=== PATIENT | female | born 1970 | race Caucasian/White ===

== ENCOUNTER 2022-10-31 09:43 | Day surgery (SDC) | payer OTHER, SELFPAY ==
[2022-08-10 08:45] VITALS: BMI 20.5
--- NOTE | 2022-09-13 09:23 | PC.NURSE ---
PT LEFT MESSAGE ON FACILITY VOICEMAIL AFTER HOURS. MESSAGE STATED SHE WAS THINKING OF CANCELLING PROCEDURE UNLESS SHE COULD HAVE IT ON A MONDAY. CALLED PT, NO ANSWER. MESSAGE LEFT; IF SHE INTENDS TO CANCEL, SHE NEEDS TO CALL DR GAYTAN'S OFFICE. ALSO WE ARE CLOSED ON WEEKENDS.
[2022-10-21 10:57] VITALS: BMI 20.5
--- NOTE | 2022-10-28 16:22 | PM.HPGS ---
History of Present Illness History of Present Illness Consent: Risks, benefits, and alternatives have been discussed and questions answered. Patient agrees to proceed with procedure. Chief complaint: Neoplasm screening Narrative: Ana Laura Falcon is a 52 year old female Referred for colon cancer screening Review of Systems Review of Systems: All systems reviewed & are unremarkable except as noted in HPI and below PMFSH Past Medical History Medical History Abnormal Pap smear of cervix 11/25/09 ASCUS hpv negative/ 04/21/2008 ascus -hpv Heartburn Hyperlipidemia Migraines Miscarriage 12/11/02 03/13/03 07/22/10 Neck fracture (~1990) Psoriasis Surgical History Surgical History History of breast augmentation (~2005) History of colposcopy with cervical biopsy (12/05/07) History of dilation and curettage 12/11/02 suction d&c--missed AB 8 weeks 03/13/03 suction d&c--incomplete ab 07/22/10 suction d&c--miscarriage History of endometrial ablation (12/05/18) History of gynecologic surgery (08/15/18) hscope d&C/lscope (R) ovarian cystectomy--menometrorrhagia, dysmenorrhea, ovarian cyst Family History Family History Father Heart disease Malignant neoplasm of prostate Colon polyp Mother Hypertension Colon polyp Grandparent Cerebrovascular accident maternal grandfather Malignant tumor of ovary maternal grandmother Social History Social History Smoking status: Never smoker Substance use: never Substance use type: does not use Living arrangements: with family Spiritual care concerns: No Meds Home Medications and Allergies Home Medications Medication Instructions Recorded Confirmed Type atorvastatin 10 mg tablet 10 mg PO DAILY 10/21/22 10/21/22 History multivit with minerals-iron 18 1 tablet PO DAILY 10/21/22 10/21/22 History mg-folic ac 400 mcg-vit K 25 mcg tablet (Adults Multivitamin) Allergies Allergy/AdvReac Type Severity Reaction Status Date / Time No Known Allergies Allergy Verified 10/21/22 10:56 Exam Const: General: alert Orientation/consciousness: patient oriented x3 Resp: Auscultation: clear to auscultation bilaterally Cardio: Rhythm: regular rhythm GI: GI Palp: Yes Soft to palpation and No Tenderness to palpation present (GI) Neuro: General: patient oriented x3 Assessment and Plan Assessment and plan (1) Colon cancer screening: Code(s): Z12.11 - Encounter for screening for malignant neoplasm of colon Status: Acute Assessment and Plan: Colonoscopy with possible biopsy or polypectomy or cautery or injection of substances.
--- NOTE | 2022-10-31 07:55 | WPDANESEPPF ---
Anes - Initial Pre Proc Eval Procedure: Operation Date: 10/31/22 11:30 Proposed Procedures p Screening Colonoscopy - Ernst Albright MD Date/Time: 10/31/22 07:55 Surgeon: Ernst Albright MD Pre Op Diagnosis: Neoplasm screening Patient Data Age: 52 Gender: F Height: 1.78 m Weight: 65 kg Allergies Allergy/AdvReac Type Severity Reaction Status Date / Time No Known Allergies Allergy Verified 10/21/22 10:56 Home Medications Medication Instructions Recorded Confirmed Type atorvastatin 10 mg tablet 10 mg PO DAILY 10/21/22 10/21/22 History multivit with minerals-iron 18 1 tablet PO DAILY 10/21/22 10/21/22 History mg-folic ac 400 mcg-vit K 25 mcg tablet (Adults Multivitamin) Patient hx anesthesia problems: none Family hx anesthesia problems: none Results Review: All pre-operative results and documents have been reviewed as part of the pre-operative evaluation. FOR[facility] Past Medical History Medical History (Updated 10/28/22 @ 16:22 by Ernst Albright MD) Abnormal Pap smear of cervix 11/25/09 ASCUS hpv negative/ 04/21/2008 ascus -hpv Heartburn Hyperlipidemia Migraines Miscarriage 12/11/02 03/13/03 07/22/10 Neck fracture (~1990) Psoriasis Surgical History Surgical History (Updated 09/28/22 @ 08:41 by Sarah Bacon) History of breast augmentation (~2005) History of colposcopy with cervical biopsy (12/05/07) History of dilation and curettage 12/11/02 suction d&c--missed AB 8 weeks 03/13/03 suction d&c--incomplete ab 07/22/10 suction d&c--miscarriage History of endometrial ablation (12/05/18) History of gynecologic surgery (08/15/18) hscope d&C/lscope (R) ovarian cystectomy--menometrorrhagia, dysmenorrhea, ovarian cyst Family History Family History (Updated 09/28/22 @ 08:43 by Sarah Bacon) Father Heart disease Malignant neoplasm of prostate Colon polyp Mother Hypertension Colon polyp Grandparent Cerebrovascular accident maternal grandfather Malignant tumor of ovary maternal grandmother Social History Social History Smoking status: Never smoker Substance use: never Substance use type: does not use Living arrangements: with family Spiritual care concerns: No Anes - Eval Final PreProcedure Day of Procedure 10/31/22 07:55 Patient weight: normal Heart: regular rate and rhythm Lungs: clear to auscultation and normal air movement Airway: Mallampati scale class II Neurological: alert and oriented Last oral intake: >/= 8 hours ASA classification: II Emergent: no Anesthetic plan: proceed Anesthesia type and monitoring: general GIVS and standard monitoring Results Review: All pre-operative results and documents have been reviewed as part of the pre-operative evaluation. Informed Consent: The patient's anesthetic plan and its attendant risks and benefits were discussed with the patient/family/POA. Questions were solicited and answers provided to the satisfaction of the patient/family/POA.
[2022-10-31 10:20] VITALS: BP 109/95; PULSE 95; RESP 20; TEMP 36.9; O2SAT 100
[2022-10-31] MEDS: LACTATED RINGERS 1,000 ML 150 ML IV CONT (10:41)
[2022-10-31 11:37] VITALS: BP 104/78; PULSE 98; RESP 16; O2SAT 99
[2022-10-31 11:47] VITALS: BP 112/81; PULSE 88; RESP 20; O2SAT 100
[2022-10-31 11:57] VITALS: BP 126/90; PULSE 86; RESP 20; O2SAT 100
--- NOTE | 2022-10-31 13:34 | WPDANESPN ---
Anes - Prog Note Post-Op Date/Time: 10/31/22 13:34 Cardiovascular status: normal Respiratory status: normal Airway patency: baseline Mental status: baseline Post-Op hydration status: normal Vital Signs: Last Vital Signs Temp 36.9 C 10/31/22 10:20 Pulse 86 10/31/22 11:57 Resp 20 10/31/22 11:57 BP 126/90 10/31/22 11:57 Pulse Ox 100 10/31/22 11:57 O2 Del Method Room Air 10/31/22 11:57 Pain Score (VAS): 0 I/O: Intake & Output 10/30/22 10/31/22 10/31/22 23:59 07:59 15:59 Intake Total 550 Balance 550 Post-procedural complaints: none Patient Feedback: Patient satisfied with anesthetic care. Other Findings: Patient vital signs back to baseline. Patient denies nausea and vomiting. Patient's pain under control. Patient OK for discharge.
== END 2022-10-31 12:12 | disposition home or self-care (01) ==
PROVIDERS: PCP Family Medicine; Visit Provider Internal Medicine Gastroenterology
PROC: 0DJD8ZZ Inspection of Lower Intestinal Tract, Via Natural or Artificial Opening Endoscopic (ICD-10-PCS; CPT 45378; principal; 2022-10-31 11:30)
DX: Z12.11 Encounter for screening for malignant neoplasm of colon (principal)
CPT/HCPCS: 45378

== ENCOUNTER 2025-01-07 11:59 | Outpatient (CLI) | payer OTHER, SELFPAY ==
--- NOTE | ~2025-01-07 | MM_ITS ---
EXAMINATION: MM screening ariana BI w court HISTORY: Screening TECHNIQUE: Craniocaudal and mediolateral oblique 3-D tomosynthesis images were obtained and synthetic 2-D images were generated. CAD analysis was submitted and interpreted. COMPARISON: No prior mammogram is available for comparison at this institution. BREAST PARENCHYMAL COMPOSITION: Not dense: There are scattered areas of fibroglandular density. FINDINGS: There is no evidence of suspicious mass, calcification, or architectural distortion to sugg est malignancy in either breast. There has been no suspicious interval change. IMPRESSION: 1. No mammographic evidence of malignancy. 2. Recommend routine screening mammography in one year. BI-RADS Category 1: Negative Reviewed, dictated and finalized at location A.
--- OUTSIDE RECORDS SUMMARY | 2025-01-07 12:24 | XMS_ITS | Data Portability ---
Author Organization [facility] [employer], Main Office Address [address] [place] [address] Care Team Providers Care Drug Safety Coordinator Name Role Phone BRENDAPAULATARA Primary Care Provider [phone] TARA DELGADILLO Referring Provider Assessment No assessment recorded. Plan of Treatment Reminders Order Date Submit Date Provider Last Modified By Organization Details Last Modified Time Details Appointments None recorded. Lab None recorded. Referral None recorded. Procedures None recorded. Surgeries None recorded. Imaging None recorded. Medication Orders atorvastati n 10 mg tablet 2022 023 [facility] [address], [address], [place], [address], 09:11:04 Patient TargetsNo targets recorded. Patient Instructions Encounter Date Encounter Id Patient Instructions Last Modified By Organization Details Last Modified Time 08/14/2023 [id number] reviewed labs from November [id number] Not available 08/26/2023 17:02:28 Reason for Referral None Reported. Results Created Date Observation Date Name Description Value Unit Range Abnormal Flag Note LastModifiedBy Organization Detail LastModifiedTime 06/14/2006/14/2022 urina lysis , dipst ick Leukocytes (reference range: negative cristina/ l) Trace Not Available [facility] [address] , [address], [place], [address], 06/14/2022 17:09:44 06/14/20 22 06/14/2022 urina lysis , dipst ick Nitrite (reference rage: negative mg/dl) negati ve Not Available [facility] [address] , [address], [place], [address], 06/14/2022 17:09:44 06/14/20 22 06/14/2022 urina lysis , dipst ick Urobilinogen (reference range: 0.2-1 mg/dl) 0.2 Not Available [address] , [address], [place], [address], 06/14/2022 17:09:44 06/14/20 22 06/14/2022 urina lysis , dipst ick Protein (reference range: negative mg/dl) Negati ve Not Available [address] , [address], [place], [address], 06/14/2022 17:09:44 06/14/20 22 06/14/2022 urina lysis , dipst ick pH (reference range: 5-7) 7.0 Not Available [address] , [address], [place], [address], 06/14/2022 17:09:44 06/14/20 22 06/14/2022 urina lysis , dipst ick Blood (reference range: negative Bebeto/ l) Negati ve Not Available [address] , [address], [place], [address], 06/14/2022 17:09:44 06/14/20 22 06/14/2022 urina lysis , dipst ick Specific Nordman (reference range: 1.005-1.030) 1.010 Not Available [address] , [address], [place], [address], 06/14/2022 17:09:44 06/14/20 22 06/14/2022 urina lysis , dipst ick Ketone (reference range: negative mg/dl) Negati ve Not Available [address] , [address], [place], [address], 06/14/2022 17:09:44 06/14/20 22 06/14/2022 urina lysis , dipst ick Bilirubin (reference range: negative mg/dl) Negati ve Not Available [address] , [address], [place], [address], 06/14/2022 17:09:44 06/14/2006/14/2022 urina lysis , dipst ick Glucose (reference range: negative mg/dl) Negati ve Not Available [address] , [address], [place], [address], 06/14/2022 17:09:44 06/14/20 22 06/14/2022 urina lysis , dipst ick Appearance Clear Not Available [address] , [address], [place], [address], 06/14/2022 17:09:44 06/14/20 22 06/14/2022 urina lysis , dipst ick Color Pale Yellow Not Available [address] , [address], [place], [address], 06/14/2022 17:09:44 12/03/19 23 12/02/2022 LIPID PANEL cholesterol 195 mg/dL 140-19 9 [facility] DEVORAH NSUS RECOM MENDA TION FOR SAHIL STERO L: ADULT CHILD LOW RISK: <200 <170 BORDE RLINE : <200- 239 ----- HIGH RISK: >240 >200 Not Available [facility] (Lab) [address] [place], [address], 12/02/2022 13:58:46 12/03/19 23 12/02/2022 LIPID PANEL triglyceride s 54 mg/dL 0-150 NIH DEVORAH NSUS REPOR T RECOM MENDA TION FOR TRIGL YCERI TIA: ADULT CHILD LOW RISK: <150 ----- BODER LINE: 150-1 99 ----- HIGH RISK: >200 ----- Not Available [facility] (Lab) [address] [place], [address], 12/02/2022 13:58:46 12/03/19 23 12/02/2022 LIPID PANEL HDL cholesterol 102 mg/dL 40- Not Available [facility] (Lab) [address] [place], [address], 12/02/2022 13:58:46 12/03/19 23 12/02/2022 LIPID PANEL LDL cholesterol, calculated 82 mg/dL 0-130 NIH DEVORAH NSUS REPOR T RECOM MENDA TIONS FOR LDL: ADULT CHILD LOW RISK <130 <110 (OPTI MAL LDL) <100 ----- BORDE RLINE : 130-1 59 ----- HIGH RISK: >160 >130 A TRIGL YCERI DE RESUL T >400 INVAL IDATE S THE CALCU LATIO N FOR LDL FRACT IONAT ION - THE LDL RESUL T WILL NOT BE REPOR REGAN. Not Available [facility] (Lab) [address] [place], [address], 12/02/2022 13:58:46 12/03/19 23 12/02/2022 COMPR EHENS KAY METAB OLIC PANEL sodium 137 mmol/ L 137-14 5 Not Available [facility] (Lab) [address] [place], [address], 12/02/2022 13:58:57 12/03/19 23 12/02/2022 COMPR EHENS KAY METAB OLIC PANEL potassium 4.3 mmol/ L 3.5-5. 1 Not Available [facility] (Lab) [address] [place], [address], 12/02/2022 13:58:57 12/03/19 23 12/02/2022 COMPR EHENS KAY METAB OLIC PANEL chloride 104 mmol/ L 98-107 Not Available [facility] (Lab) [address] [place], [address], 12/02/2022 13:58:57 12/03/19 23 12/02/2022 COMPR EHENS KAY METAB OLIC PANEL carbon dioxide 25 mmol/ L 22-30 Not Available [facility] (Lab) [address] [place], [address], 12/02/2022 13:58:57 12/03/19 23 12/02/2022 COMPR EHENS KAY METAB OLIC PANEL anion gap 12.3 mmol/ L 14-22 low Not Available [facility] (Lab) [address] [place], [address], 12/02/2022 13:58:57 12/03/19 23 12/02/2022 COMPR EHENS KAY METAB OLIC PANEL glucose 92 mg/dL 70-99 Not Available [facility] (Lab) [address] [place], [address], 12/02/2022 13:58:57 12/03/19 23 12/02/2022 COMPR EHENS KAY METAB OLIC PANEL BUN 7 mg/dL 8-19 low Not Available [facility] (Lab) [address] [place], [address], 12/02/2022 13:58:57 12/03/19 23 12/02/2022 COMPR EHENS KAY METAB OLIC PANEL creatinine 0.72 mg/dL 0.66-1 .25 Not Available [facility] (Lab) [address] [place], [address], 12/02/2022 13:58:57 12/03/19 23 12/02/2022 COMPR EHENS KAY METAB OLIC PANEL GFR >60 Refer ence Range : [place] ge GFR Healt hy Adult : >60 mL/mi n/1.7 3 m2 Chron ic Kidne y Disea se: 15-60 mL/mi n/1.7 3 m2 Kidne y Failu re: <15/m L/min /1.73 m2 www.n iddk. nih.g ov The MDRD study equat ion has not been valid ated in child bruce <18 years of age; pregn ant women ; the elder ly >85 years of age; or in some racia l or ethni c subgr oups, such as Hispa nics. Outsi de the valid ated jesse eters , estim ated GFR is less accur ate, requi ring clini georgina judgm ent on a case- by-ca se basis . Clini georgina inter preta tion for other races and ages must be made by the clini tiffanie. The MDRD study equat ion has not been valid ated for the evalu ation of serum creat inine relat ed to nutri key l statu s or medic ation usage . For perso ns <18 years of age, a pedia tric GFR calcu lator is avail able on the [facility] websi te: https ://konrad knapp.berny butt/adriana lopezess ional s/kdo qi/gf r_cal culat or Not Available [facility] (Lab) [address] [place], [address], 12/02/2022 13:58:57 12/03/1912/02/2022 COMPR EHENS KAY METAB OLIC PANEL alkaline phosphatase 72 U/L 38-126 Not Available [facility] (Lab) [address] [place], [address], 12/02/2022 13:58:57 12/03/1912/02/2022 COMPR EHENS KAY METAB OLIC PANEL alanine aminotransfe rase 17 U/L 0-35 Not Available [facility] (Lab) [address] [place], [address], 12/02/2022 13:58:57 12/03/19 23 12/02/2022 COMPR EHENS KAY METAB OLIC PANEL aspartate aminotransfe rase 30 U/L 15-37 Not Available [facility] (Lab) [address] [place], [address], 12/02/2022 13:58:57 12/03/19 23 12/02/2022 COMPR EHENS KAY METAB OLIC PANEL bilirubin, total 0.60 mg/dL 0.20-1 .30 Not Available [facility] (Lab) [address] [place], [address], 12/02/2022 13:58:57 12/03/19 23 12/02/2022 COMPR EHENS KAY METAB OLIC PANEL calcium 9.4 mg/dL 8.4-10 .2 Not Available [facility] (Lab) [address] [place], [address], 12/02/2022 13:58:57 12/03/19 23 12/02/2022 COMPR EHENS KAY METAB OLIC PANEL total protein 7.0 g/dL 6.3-8. 2 Not Available [facility] (Lab) [address] [place], [address], 12/02/2022 13:58:57 12/03/19 23 12/02/2022 COMPR EHENS KAY METAB OLIC PANEL albumin 4.3 g/dL 3.4-5. 0 Not Available [facility] (Lab) [address] [place], [address], 12/02/2022 13:58:57 12/03/19 23 12/02/2022 COMPR EHENS KAY METAB OLIC PANEL globulin 2.7 g/dL 2.6-4. 2 Not Available [facility] (Lab) [address] [place], [address], 12/02/2022 13:58:57 03/31/12/02/2022 COMPR EHENS KAY METAB OLIC PANEL A/G ratio 1.6 ratio 1.0-2. 0 Not Available [facility] (Lab) [address] [place], [address], 12/02/2022 13:58:57 07/12/20 21 finge r(s) 2vws, right [facility] [address] [facility] [place] [address] Patien t Name: SYLVESTER MAYA ion #: [id number] Sex: F : 1969 4 Locati on: MO2 Attend ing Physic del: ELKHAT IB, RUNDA Orderi ng Physic del: ELKHAT IB, RUNDA Exam Date: 8:13 AM Exam Name: XR FINGER (S) RT 2V Admitt ing Diagno sis(es ): RADIOL OGY REPORT - FINAL EXAM: XR FINGER (S) RT 2V HISTOR Y: pain-r t 4th digit COMPAR PRIYANKA: None. TECHNI QUE: Three views of the right 4th finger were perfor med. FINDIN GS: No acute fractu re or disloc ation are identi fied about the right 4th finger . IMPRES WAYNE: No acute fractu re of the right 4th finger . Page 1 of 2 [facility] Patiloreta t Name: SYLVESTER MAYA Access ion #: [id number] Sex: F : 1969 4 Exam Date: 8:13 AM Exam Name: XR FINGER (S) RT 2V Admitt ing Diagno sis(es ): Create d and electr onical ly signed by: Ld Laguerre ch, DO Signed Date: 8:21 AM (CT) Dictat ed by: Ld Laguerre ch, DO DD: 8:21 AM (CT) DT: 8:21 AM (CT) Page 2 of 2 [facility].[id number] [facility] (Imaging) [address] [place], [address], 11/02/2022 07:40:17 07/12/20 21 06/03/2021 XR, finge r(s) No observ ation record ed. [id number] [facility] [address] [place], [address], 11/02/2022 07:40:17 09/16/19 22 MAMMO , scree chandler, digit al, bilat eral [facility] [address] [facility] [place] [address] [phone] Elmo yan Name: MAYASYLVESTER Access ion #: [id number] Sex: F : 1969 3 Locati on: RA2 Attend ing Physic del: NOHELIA KAPLAN Orderi Physic del: NOHELIA KAPLAN Exam Date: 022 11:02 AM Exam Name: MG DIGITA L SERENA BILAT SCREEN Admitt ing Diagno sis(es ): RADIOL OGY REPORT - FINAL EXAM: MG DIGITA L SERENA BILAT SCREEN HISTOR Y: screen ing mammog estela 51-yea r-old female with no curren t breast compla ints. The patiloreta t has a histor y of bilate ral saline breast implan ts placed in 2005 COMPAR PRIYANKA: 2020, 2019 TECHNI QUE: Bilate ral CC and MLO views of the breast s were perfor med. Digita l Mammog wilmar images were obtain ed. CAD (compu ter assist ed detect ion) was utiliz ed. FINDIN GS: The breast s are hetero geneou sly dense, which may obscur e small masses . Bilate ral retrop ectora l breast implan ts are re-klaus ntifie d. No new masses , Page 1 of 2 [facility] Elmo yan Name: MAYA SYLVESTER Access ion #: [id number] Sex: F : 1969 3 Exam Date: 11:02 AM Exam Name: MG DIGITA L SERENA BILAT SCREEN Admitt ing Diagno sis(es ): develo ping asymme tries, suspic ious calcif icatio ns, or mick ectura l distor tion are seen. IMPRES WAYNE: BIRADS 2: Assess ment comple te. Benign findin gs. Recomm end annual screen ing mammog wilmar. Accord ing to the [employer], yearly mammog bossman are recomm ended starti ng at age 40 and contin uing as long as the woman is in good health . Clinic al Breast Exam should be part of the period health exam-a bout every 3 years for women in their 20s and 30s and every year for women 40 and over. Breast self-e xam is an option for women in their 20s. Any breast change noted on the breast self-e xam she would be report ed prompt ly to the elmo yan's [facility] er. A negati ve mammog wilmar report should not discou rage follow -up or biopsy of a clinic ally signif icant findin g and/or abnorm ality. Dense breast tissue may obscur e small neopla sms. This elmo yan has been entere d into a mammog wilmar remind er system with a target date for her next mammog estela. Create d and electr onical ly signed by: Feng polanco MD Signed Date: 1:27 PM (CT) Dictat ed by: Feng polanco MD DD: 1:27 PM (CT) DT: 1:27 PM (CT) Page 2 of 2 [id number] [facility] (Imaging) [address] [place], [address], 11/02/2022 07:40:17 09/16/19 22 09/16/2021 MAMMO , scree chandler, digit al, bilat eral No observ ation record ed. [id number] [facility] [address] [place], [address], 11/02/2022 07:40:17 09/16/19 22 09/16/2021 imagi ng/di agnos tic resul t No observ ation record ed. [id number] [facility] [address] [place], [address], 11/02/2022 07:40:17 12/03/19 23 12/02/2022 MAMMO , scree chandler, digit al, bilat eral No observ ation record ed. [email or web address] [facility] [address] [place], [address], 12/05/2022 08:23:56 12/13/19 24 12/13/2023 MAMMO , scree chandler, digit al, bilat eral No observ ation record ed. [email or web address] [facility] [address] [place], [address], 12/14/2023 11:37:22 Result Notes None recorded. Problems Name Problem SNOMED Code Status Onset Date Resolution Date Notes Provider Name and Address Organization Details Recorded Time Menometrorrha ally 718384378 Active Not Available [facility] 3 07:32:15 Migraine 87323337 Active 2020 Not Available [facility] 3 07:32:15 Irregular periods 60773660 Active Not Available [facility] 3 07:32:15 Administratio n of influenza vaccine Active 2022 MIKE Rasmussen [address] [facility], [facility] [address], [place], [address] , [facility] 3 23:01:49 Problem Notes None recorded. Procedures Surgical History Date Name Laterality Status Provider Name and Address Organization Details Recorded Time 09/15/19 21 Most Recent Mammogram completed Not Available [facility] 11/02/2022 07:27:08 08/24/20 20 Date of Last Pap Smear completed Not Available [facility] 11/02/2022 07:27:08 12/06/19 19 RIGGER CHIEF Surgery completed Not Available [facility] 11/03/19 23 07:27:09 08/15/20 18 RIGGER CHIEF Surgery completed Not Available [facility] 11/03/19 07:27:09 07/22/20 10 RIGGER CHIEF Surgery completed Not Available [facility] 11/03/19 07:27:09 09/04/19 06 Breast Implants completed Not Available [facility] 0309/2022 07:27:09 03/13/20 03 RIGGER CHIEF Surgery completed Not Available [facility] 11/03/19 07:27:09 12/12/19 03 RIGGER CHIEF Surgery completed Not Available [facility] 11/03/19 07:27:09 Dilation and curettage completed Not Available [facility] 11/02/2022 07:27:09 Colonoscopy completed Rachel Palm MA [place] - [facility] [place] [employer] [facility] 08/14/2023 09:03:35 Imaging Results Imaging Date Name Status LastModified by Organiz [facility] hospital Details LastModified Time 07/12/2021 finger(s) 2vws, right completed [id number] [facility] (Imaging) [address] [place], [address], 11/02/2022 07:40:17 06/03/2021 XR, finger(s) completed [id number] [facility] [address] [place], [address], 11/02/2022 07:40:17 09/16/2021 MAMMO, screening, digital, bilateral completed [id number] [facility] (Imaging) [address] [place], [address], 11/02/2022 07:40:17 09/16/2021 MAMMO, screening, digital, bilateral completed [id number] [facility] [address] [place], [address], 11/02/2022 07:40:17 09/16/2021 imaging/diagno stic result completed [id number] [facility] [address] [place], [address], 11/02/2022 07:40:17 12/02/2022 MAMMO, screening, digital, bilateral completed [email or web address] [facility] [address] [place], [address], 12/05/2022 08:23:56 12/13/2023 MAMMO, screening, digital, bilateral completed [email or web address] [facility] [address] [place], [address], 12/14/2023 11:37:22 Procedure Notes None recorded. Medical Equipment None Reported. Allergies Allergen ID Allergen Name Allergen Category Reaction Reaction Severity Criticality Documentation Date Start Date Code Code System Note Provider Name and Address Organization Details Recorded Time 99723 Product containin g penicilli n (product) medicatio n Not available Not available Not available 11/02/2022 61719 8001 SNOMED Not Available [facility] 3 07:40:09 Medications Name Sig Start Date Stop Date Status Note LastModified by Organization Details LastModified Time cefuroxime axetil 250 mg tablet 06/21 completed Not Available Not Available Not Available atorvastati n 10 mg tablet Take 1 tablet every day by oral route in the morning for 90 days. active Not Available Not Available No t Available amitriptyli ne 75 mg tablet TAKE 1 TABLET BY MOUTH NIGHTLY 08/25 completed Not Available Not Available Not Available Cytotec 200 mcg tablet Take 2 tablets by oral route at bedtime for 1 day. 12/18 completed Not Available Not Available Not Available hydrocodone 5 mg-acetamin ophen 325 mg tablet 08/20 completed Not Available Not Available Not Available Medrol (Josue) 4 mg tablets in a dose pack Use as directed 06/14 completed Not Available Not Available Not Available sulfamethox azole 800 mg-trimetho prim 160 mg tablet TK 1 T PO BID FOR 7 DAYS 12/18 completed Not Available Not Available Not Available alprazolam 0.25 mg tablet Take 1 tablet by mouth three times daily as needed 2023 active Not Available Not Available Not Avai lable amitriptyli ne 25 mg tablet 06/21 completed Not Available Not Available Not Available meclizine 25 mg tablet TK 1 T PO TID PRN 06/21 completed Not Available Not Available Not Available betamethaso ne, augmented 0.05 % topical ointment APPLY OINTMENT TOPICALLY TWICE DAILY TO AFFECTED EXTREMITI ES NEEDED active Not Available Not Available No t Available omeprazole 20 mg capsule,del ayed release TK ONE C PO QD active Not Available Not Available No t Available levofloxaci n 500 mg tablet active Not Available Not Available Not Available zolpidem 10 mg tablet 06/21 completed Not Available Not Available Not Available amoxicillin 875 mg-potassiu m clavulanate 125 mg tablet 06/21 completed Not Available Not Available Not Available calcipotrie ne 0.005 % topical ointment 08/24 completed Not Available Not Available Not Available Ortho Micronor 0.35 mg tablet Take 1 tablet every day by oral route. active Not Available Not Available No t Available Zantac 06/25 completed Not Available Not Available Not Available calcipotrie ne-betameth asone 0.005 %-0.064 % topical ointment APPLY OINTMENT TOPICALLY ONCE DAILY TO PSORIASIS . DO NOT USE ON FACE OR GENITALS. active Not Available Not Available No t Available BinaxNOW COVID-19 Ag Self Test kit Use as Directed on the Package 06/14 completed Not Available Not Available Not Available Vitals Date Recorded Body mass index (BMI) Body height Body temperature Body weight Systolic blood pressure Diastolic blood pressure Provider Name and Address Organization Details Last Updated DateTime 1 20.7 kg/m2 177.8 cm 97.2 [degF] 84507.3 g 144 mm[Hg] 88 mm[Hg] Not Available [facility] 3 07:31:27 Date Recorded Body mass index (BMI) Body height Oxygen saturation Oxygen saturation in Arterial blood by Pulse oximetry Heart rate Body temperature Body weight Systolic blood pressure Diastolic blood pressure Provider Name and Address Organization Details Last Updated DateTime 2 20.5 kg/m2 177.8 cm 98 % 98 % 65 /min 97.7 [degF] 39814.7 1 g 122 mm[Hg] 76 mm[Hg] Not Available [facility] 3 07:31:27 Date Recorded Body height Provider Name an d Address Organization Details Last Updated DateTime 08/10/2021 177.8 cm Not Available [facility] 3 07:31:28 Date Recorded Body weight Body temperature Oxygen saturation Oxygen saturation in Arterial blood by Pulse oximetry Heart rate Systolic blood pressure Diastolic blood pressure Provider Name and Address Organization Details Last Updated DateTime 3 49155.4 9 g 98.1 [degF] 98 % 98 % 85 /min 130 mm[Hg] 78 mm[Hg] Rachel Palm MA [place] - [facility] 3 09:05:23 Social History Question Answer Notes LastModified by [employer] Details LastModified Time Tobacco Smoking Status Never Smoker Not Available [facility] 11/02/2022 07:27:03 What Is Your Level Of Alcohol Consumption? Occasional [id number] Information not available 11/02/2022 What Is Your Level Of Caffeine Consumption? Moderate [id number] Information not available 11/02/2022 In The 14 Days Before Symptom Onset, Have You Had Close Contact With A Laboratory-confirm ed COVID-19 While That Case Was Ill? No [id number] Information not available 11/02/2022 In The 14 Days Before Symptom Onset, Have You Had Close Contact With A Person Who Is Under Investigation For COVID-19 While That Person Was Ill? No [id number] Information not available 11/02/2022 What Is Your Relationship Status? [id number] Information not available 11/02/2022 Do You Use Your Seat Belt Or Car Seat Routinely? Yes [id number] Information not available 11/02/2022 Do You Use Any Illicit Or Recreational Drugs? No [id number] Information not available 11/02/2022 Have You Recently Traveled Abroad? No [id number] Information not available 11/02/2022 Sex: Female Functional Status Question Answer Note LastModified by [employer] Details LastModified Time What is your exercise level? None [id number] Information not available 11/02/2022 Mental Status None recorded. Family History Relationship Description Onset Age of this Age Resolved Age Notes LastModified by Organization Details LastModified Time Father Polyp of colon [id number] Not available 11/02/2022 07:27:14 Father Family history of malignant neoplasm [id number] Not available 11/02/2022 07:27:14 Mother Polyp of colon [id number] Not available 11/02/2022 07:27:15 Mother Hypertensive disorder [id number] Not available 11/02/2022 07:27:15 Maternal Grandmother Family history of malignant neoplasm [id number] Not available 11/02/2022 07:27:15 Maternal Aunt Family history of malignant neoplasm [id number] Not available 11/02/2022 07:27:15 Medical History Condition Response BLINDNESS N RHEUMATIC FEVER N KIDNEY STONES N BLADDER PROBLEMS N MRSA N OTHER # 1 N POLIO N LUNG DISEASE/DISORDER N HISTORY OF DRUG ABUSE N RADIATION / CHEMOTHERAPY N COPD N Other # 2 N BLOOD DISEASES N SURGERY N EAR OR HEARING PROBLEMS N MUMPS N SHINGLES N BOWEL PROBLEMS N FEMALE PROBLEMS / INFECTIONS N DEPRESSION (INCLUDING POST ) N STROKE/TIA N THYROID DISEASE N ULCERS N BENIGN PROSTATIC HYPERPLASIA N MEASLES N CERVICALGIA N HYPOTENSION N TB SKIN TEST N MYOCARDIAL INFARCTION N PARAPELGIA N OBESITY N GERD/NAUSEA N ANEURYSM N URINARY/BLADDER/KIDNEY PROBLEMS N CORONARY ARTERY DISEASE (CAD) N MENIERE'S DISEASE N ADDICTION CONCERNS N ENDOMETRIOSIS N USE OF BLOOD THINNERS N SKIN PROBLEMS Y EMPHYSEMA N GASTROINTESTINAL DISORDER N MUSCLE,JOINT OR BONE PROBLEMS N GASTROINTESTINAL BLEEDING N BLOOD CLOTS N ASTHMA N CATARACTS N ERECTILE DYSFUNCTION N GI PROBLEMS N CHF N Low Testosterone N NEUROPATHY N INFERTILITY N AIDS/HIV N FRACTURES N CHEMOTHERAPY / RADIATION N VISION/EYE PROBLEMS N LIVER DISEASE N MALE HYPOGONADISM N HYPERTENSION N TOURETTE'S N ANXIETY DISORDER Y BLOOD TRANSFUSION N ANEMIA/BLOOD DISORDER N CHRONIC EAR INFECTIONS N BRONCHITIS N TUBERCULOSIS N GLAUCOMA N FOOT PROBLEM N DIVERTICULITIS N CHICKENPOX N SLEEP APNEA N ALLERGIES/HAYFEVER N INFECTIOUS DISEASE N HEART ARRHYTHMIA N PROSTATE N INSOMNIA N HIGH CHOLESTEROL / HYPERLIPIDEMIA Y HYPERTHYROIDISM N EYE PROBLEMS N EATING DISORDER N EDEMA N CHRONIC PAIN SYNDROME N CONSTIPATION N CAROTID BLOCKAGE N BACK / NECK PROBLEMS N HAVE YOU BEEN HOSPITALIZED OR SEEN IN [facility] IN THE PAST YEAR ? N ATHEROSCLEROSIS N BREAST PROBLEMS N DIALYSIS N ECZEMA N FIBROMYALGIA N OSTEOPOROSIS N ARTHRITIS N NO SIGNIFICANT PAST MEDICAL HISTORY N APPENDICITIS N DIABETES, TYPE N BAD TEETH N HEARTBURN / REFLUX N ADD/ADHD N AUTISM SPECTRUM DISORDER (ASD) N HEPATITIS / LIVER DISEASE N PULMONARY DISEASE N GOUT N SLEEP DISORDER N ALZHEIMER'S DISEASE N PAIN N HERPES N DEMENTIA N HEADACHES/MIGRAINES Y SEIZURES/EPILEPSY N VASCULAR DISEASE N PACEMAKER N DIZZINESS N HEART DISEASE/HEART PROBLEMS N KIDNEY DISEASE N DEVELOPMENTAL OR BEHAVIORAL DISORDERS N MULTIPLE SCLEROSIS N SCARLET FEVER N MENTAL DISORDER/ILLNESS N CARDIAC ARRHYTHMIA N CANCER: SPECIFY N PNEUMONIA N ATRIAL FIBRILLATION N Gall Stones N PULMONARY EMBOLISM N AUTOIMMUNE DISEASE N Gynecological History Statement/Question Response Abnormal Pap Y Date of Last Mammogram 09/15/2020 Date of LMP Date of Last Pap 08/24/2020 Date of Last Pap Smear 08/24/2020 Current Control Method Partner Vas ectomy Age at Menarche 12 Most Recent Mammogram 09/15/2020 Obstetrics History GPAL:G 6 P 3 0 3 0 Type Value Full Term 3 Spontaneous 3 Total 6 Immunizations Vaccine Type Date Status Note Provider Nam e and Address Organization Details Recorded Time Influenza, split virus, quadrivalent, PF 3 completed MYLES Bedoya [place] [employer] 09/01/2023 09:31:29 Tdap 2 completed Not Available [facility] 11/02/2022 07:40:00 Influenza, split virus, quadrivalent, PF 2 completed Not Available [facility] 11/02/2022 07:40:00 zoster recombinant 1 completed Not Available [facility] 11/02/2022 07:40:00 Influenza, split virus, quadrivalent, PF 1 completed Not Available [facility] 11/02/2022 07:40:00 zoster recombinant 1 completed Not Available [facility] 11/02/2022 07:40:01 Past Encounters Encounter ID Performer Location Encounter Start Date Encounter Closed Date Diagnosis/Indication Diagnosis SNOMED-CT Code Diagnosis ICD10 Code Diagnosis Note [id number] Gladis Gupta MD [facility] [place] [address] [place] [address] 05/20/2021 00:00:00 05/21/2021 05:36:02 [id number] Gladis Gupta MD [facility] [place] [address] [place] [address] 06/30/2021 00:00:00 06/30/2021 11:31:34 [id number] Gladis Gupta MD [facility] [place] [address] [place] [address] 08/10/2021 00:00:00 08/10/2021 10:27:37 [id number] [facility] ic_[facility] _ATHENA_M IGRATION_ DEFAULT_1 _1 , 08/25/2021 00:00:00 08/25/2021 12:28:39 [id number] Gladis Gupta MD [facility] [place] [address] [place] [address] [place] [address] 06/14/2022 00:00:00 06/14/2022 20:34:10 [id number] Gladis Gupta MD [facility] [place] [address] [place] [address] [place] [address] 08/14/2023 08:54:51 08/14/2023 09:16:35 Hyperlipidemia 65206705 E78.5 [facility] [id number] G43.90 [id number] Gladis Gupta MD [facility] [place] [address] [place] [address] [place] [address] 08/21/2023 09:59:51 09/18/2023 10:46:29 Administration of influenza vaccine [id number] Health Concerns Section Related Observation LastModified by Organization Detai ls LastModified Time None Recorded Concern Status LastModified by Organization Details LastModified Time None Recorded Advance Directives Directive None Recorded Payers Encounter Date Sequence Insurance Name Policy Number Policy Montalvo Covered Member ID Montalvo Member ID Guarantor Name 08/14/2023 1 [facility] [id number] Link Maya [id number] Sylvester Maya 08/21/2023 1 [facility] [id number] Link Maya [id number] Sylvester Maya Notes Date Note Type Note Provider Name and Address Organization Details Recorded Time 08/14/2023 text/html had colonoscopy in December. here for wellness exam MIKE Rasmussen [address] [place] [address], [facility] [address], [place], [address], [place] [facility] 08/26/2023 17:02:32 OBGyn Episode No OBEpisode recorded.
--- OUTSIDE RECORDS SUMMARY | 2025-01-07 12:24 | XMS_ITS | Clinical Summary ---
Author Organization [facility] Address [address] [place] [address] Care Team Providers Care Relish Blender Name Role Phone Rashad Cervantes MD Primary Care Provider [phone] Source Comments [facility],non-owned Affiliates and Associated Physician Practices is amultiple site organization consisting of ambulatory clinics and hospital sitesin [place], [place], [place] and [place]. This disclosure is being madepursuant to the Care Everywhere program and may not contain all information available regarding this patient. Last updated 18.[facility] Allergies No known active allergies Immunizations Immunization Administration Dates Next Due INFLUENZA VACCINE, QUADR. 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 Gender Identity Not on file Sexual Orientation Not on file Plan of Treatment Health Maintenance Due Date Last Done Comments COLOGUARD (AGES 45-75) - COL ON CA SCREENING 1970 COLON MONITORING 1970 COLONOSCOPY - COLON CA SCREENING 1970 CT COLONOGRAPHY - COLON CA SCREENING 1970 Colorectal Cancer Screening 1970 FIT - COLON CA SCREENING 1970 FLEX SIG - COLON CA SCREENING 1970 LIPID TESTING 1970 MAMMOGRAM 1970 PAP SMEAR 1970 HIV SCREENING 1985 HEPATITIS C SCREENING 07/12/1988 DTAP/TDAP/TD VACCINES (1 - Tdap) 1989 HEPATITIS B VACCINE (1 of 3 - 19+ 3-dose series) 1989 PNEUMOCOCCAL VACCINE 50+ (1 of 1 - PCV) 2020 ZOSTER VACCINE (1 of 2) 2020 COVID-19 VACCINE (1 - 2023-2 5 season) 2024 DEPRESSION SCREENING 09/04/2024 INFLUENZA VACCINE (Season Ended) 2025 06/27/20 18 HIB VACCINE Aged Out No longer eligi ble based on patient's age to complete this topic HPV VACCINE Aged Out No longer eligi ble based on patient's age to complete this topic MENINGOCOCCAL (Group B) VACC INE SHARED DECISION-MAKING Aged Out No longer eligibl e based on patient's age to complete this topic MENINGOCOCCAL GROUPS A/C/Y/W VACCINE Aged Out No longer eligible b ased on patient's age to complete this topic Insurance [address] * Guarantor: SYLVESTER MAYA Account Type Relation to Patient Date of Phone Billing Address Personal/Family [address] CARE Care Teams Relish Blender Relationship Specialty Start Date End Date Rashad Cervantes MD [address] [place] [address] PCP - General 09/26/18
--- OUTSIDE RECORDS SUMMARY | 2025-01-07 12:24 | XMS_ITS | Clinical Summary ---
Author Organization [facility] Address [facility] [place] [address] Care Team Providers Care Industrial Maintenance Instructor Name Role Phone Gladis Gupta MD Primary Care Provider [phone] Allergies No known active allergies Medications MULTIVITAMIN ORAL Take 1 tablet by mouth daily Active MAGNESIUM ORAL Take 250 mg by mouth daily Active calcipotriene (DOVONOX) 0.005 % ointment Apply topically 2 (two) times a day Active amitriptyline (ELAVIL) 75 mg tablet Take 1 tablet (75 mg total) by mouth nightly 90 tablet 3 0 Active atorvastatin (LIPITOR) 10 mg tablet Take 1 tablet (10 mg total) by mouth daily 1 Active omeprazole (PriLOSEC) 20 mg capsule Take 1 capsule (20 mg total) by mouth daily Active methylPREDNISol one (MEDROL DOSEPACK) 4 mg DosepackIndicat ions:Hx of wheezing Take 6 tabs on day 1, reduce dose by 1 daily until prescription is complete. 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 She is interested in trying to come off the amitriptyline at this time to see if the head headaches remain suppressed. I will reduce her amitriptyline to 75 mg 0.5 tablets HS for 2 weeks and then discontinue with thereafter an effort to avoid any rebound insomnia. If the headaches would return with frequency upon cessation of the amitriptyline, she can contact this office for resumption of the amitriptyline. Otherwise she will follow-up in neurology clinic on an as-needed basis. Assessment & Plan (08/11/2020 10:35 AM LAUNDRY MACHINE OPERATOR): Patient is a former patient of [facility] treated for chronic mixed-type headaches. Prior medical records from [facility] have been reviewed today with patient to facilitate transfer in care. She was last seen a [facility] in 2018 and has been prescribed amitriptyline 75 mg HS since. She is in need of refill of medication at this time. She cites good tolerability with medication and good symptomatic relief of headache. She averages no more than 2 headache days per month and those are typically alleviated with jhny-zsl-[id number] supplemental analgesic. She exhibits a normal neurological examination today. I have renewed her amitriptyline 75 mg HS as previously prescribed, and I plan to see her back in 1 year. Pain in ear 03/10/2017 Subjective tinnitus 03/10/2017 Immunizations Immunization Administration Dates Next Due Influenza, Quadrivalent, Spl it, Preservative Free, Intramuscular 06/30/2021,06/18/2020,09/24/2019,06/27 ZOSTER Recombinant 05/20/2021 Surgical History Surgery Date Site/Laterality Comments NECK SURGERY DILATION AND CURETTAGE OF UTERUS Medical History Medical History Date Comments Migraines Hyperlipidemia Family History Medical History Relation Name Comments No Known Problems Brother Prostate cancer Father oral cancer Father Hypertension Mother Relation Name Status Comments Brother Alive Father Alive Mother Alive Social History Tobacco Use Types Packs/Day Years Used Date Smoking Tobacco: Never Smokeless Tobacco: Never AUDIT-C Answer Date Recorded Q1: How often do you have a drink containing alc ohol? 2-3 times a week 08/03/2021 Q2: How many drinks containi ng alcohol do you have on a typical day when you are drinking? 1 or 2 08/03/2021 Q3: How often do you have si x or more drinks on one occasion? Never 08/03/2021 Personal Safety Answer Date Recorded Getting School Help Needed Not on file 11/17 Comments No Sex and Gender Information Value Date Recorded Sex Assigned at Not on file Legal Sex Female 3:20 AM LAUNDRY MACHINE OPERATOR Gender Identity Not on file Sexual Orientation Not on file Obstetrics History Last Filed Vital Signs Vital Sign Reading Time Taken Comments Blood Pressure 123/87 02/28/2024 10:51 AM CDT Pulse 74 02/28/2024 10:51 AM CDT Temperature 36.2 C (97.2 F) 02/28/2024 10:51 AM CDT Respiratory Rate 20 02/28/2024 10:51 AM CDT Oxygen Saturation 98% 02/28/2024 10:51 AM CDT Inhaled Oxygen Concentration - - Weight 64.4 kg (142 lb) 02/28/2024 10:51 AM CDT Height 177.8 cm (5' 10 ) 02/28/2024 10:51 AM CDT Body Mass Index 20.37 02/28/2024 10:51 AM CDT Plan of Treatment Health Maintenance Due Date Last Done Comments Breast Cancer Screening-Mammogram 1970 Cervical Cancer Screening 1970 Colon Cancer Screening-Colonoscopy 1970 Depression Screening 1970 Hepatitis C Screening 1970 Hepatitis B Screening 1988 Regular Well Visit/Exam 18-64 1988 Influenza Vaccine (#1) 2024 3, 06/14/2022, 06/30/2021, Additional history exists DTaP/Tdap/Td Vaccine (2 - Td or Tdap) 06/14/2032 06/14/2022 Zoster Vaccine Completed 08/10/2021, 05/20/2021 Pneumococcal vaccine <65 Aged Out No longer eligible based on patient's age to complete this topic Insurance [facility] CHO[facility]US [facility] H[facility]PPO Address: [address] [address] [place] [address] [place] [address] [facility] CHOICE PLUS [facility] HMO/PPO Address: [address] [address] [place] [address] Care Teams Industrial Maintenance Instructor Relationship Specialty Start Date End Date Gladis Gupta MD [address] [place] [address] [place] [address] PCP - General Family Medicine 08/03/21
--- OUTSIDE RECORDS SUMMARY | 2025-01-07 12:24 | XMS_ITS | Encounter Summary ---
Author Organization [facility] Address [address] [facility] [place] [address] Care Team Providers Care Fur Operator Name Role Phone Rashad Cervantes MD Primary Care Provider [phone] Encounter Details Date Type Department Care Team (Late st Contact Info) Description 01/18/2024 Lab Requisition [facility] - DermPath Lab [address] [facility], [facility] [place] [address] Jadyn Castano DO [address] 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 Gender Identity Not on file Sexual Orientation Not on file documented as of this encounter Plan of Treatment Not on file documented as of this encounter Procedures Procedure Name Priority Date/Time Associated Diagnosis Comments DERMATOPATHOLOGY Routine 01/18/2024 11:1 9 AM CDT documented in this encounter Results * DERMATOPATHOLOGY (01/18/2024 11:19 AM CDT) Case Report Dermatopathology Report Case: [id number] Authorizing Provider: Jadyn Castano DO Collected: 01/18/2024 11:19 AM Ordering Location: [facility] - Received: 01/19/2024 08:07 AM DermPath Lab Pathologist: Marie Norris MD Specimens: A) - Skin, left upper back B) - Skin, right upper arm 2:56 PM [facility] DERMATOPATHOLOGY [facility]ORATORY Final Diagnosis Specimen A. SKIN, left upper back: INTRADERMAL MELANOCYTIC NEVUS (D22.5) Specimen B. SKIN, right upper arm: BENIGN VERRUCOUS KERATOSIS, INFLAMED (L82.1) 2:56 PM [facility] DERMATOPATHOLOGY LABORATORY Clinical History A: R/O Nevus. B: ISK r/o NMSC. 2:56 PM [facility] DERMATOPATHOLOGY LABORATORY Gross Description Specimen A: Received is one formalin filled container labeled with the patient's name and designated left upper back. The specimen consists of a shave biopsy measuring 3x3x1 mm. Jar 0. Specimen B: Received is one formalin filled container labeled with the patient's name and designated right upper arm. The specimen consists of a shave biopsy measuring 4x4x1 mm. Jar 0. 2:56 PM [facility] DERMATOPATHOLOGY LABORATORY Microscopic Description Specimen A. SKIN, left upper back: There are nests of cytologically bland melanocytes within the dermis that mature with depth. Specimen B. SKIN, right upper arm: Sections show hyperkeratosis, papillomatosis, hypergranulosis, and acanthosis. Inflammatory cells are present within the dermis. These histological findings can be seen in a verruca vulgaris or a seborrheic keratosis. 2:56 PM [facility] DERMATOPATHOLOGY LABORATORY Disclaimer An external and internal positive and negative controls are appropriate for the histochemical, immunohistochemical and immunofluorescence stain(s) in this case (if any), except where stated explicitly. The performance characteristics of the stain(s) cited in this report were developed and its performance characteristic determined by the Dermatopathology Laboratory at [facility], directed by Dr. Estrada Christian. These tests need not be, and therefore are not, approved by the [place] Food and Drug Administration. The tests are used for clinical purposes. Billing Codes Specimen Charges Stain Charges 44656 56934 1 1 05/20/202 4 2:56 PM CDT DERMATOPATHOLOGY LABORATORY Embedded Images 4 2:56 PM CDT DERMATOPATHOLOGY LABORATORY Pathology/Cytology TISSUE SPECIMEN FROM SKIN / Unknown 01/18/2024 11:19 AM CDT 01/19/2024 8:07 AM CDT Miscellaneous samples (specimen) TISSUE SPECIMEN FROM SKIN / Unknown 01/18/2024 11:19 AM CDT 01/19/2024 8:07 AM CDT us Jadyn Castano DO LAB - PATHOLOGY/CYTOLOGY ORDERABLES Final Result DERMATOPATHOLOGY LABORATORY [facility] - Department of Dermatology [facility] Medicine [address] [place] [address], [address] [phone] documented in this encounter Visit Diagnoses Not on filedocumented in this encounter Care Teams Fur Operator Relationship Specialty Start Date End Date Rashad Cervantes MD [address] [facility] [place] [address] PCP - General 09/26/18 documented as of this encounter
--- OUTSIDE RECORDS SUMMARY | 2025-01-07 12:24 | XMS_ITS | Referral Summary ---
Author Organization [facility] Address [address] [place] [address] Care Team Providers Care Straight Knife Machine Cutter Name Role Phone Gladis Gupta MD Primary Care Provider [phone] Allergies No known active allergies Medications MULTIVITAMIN [...] 08/11/2020 Assessment & Plan (08/03/2021 10:33 AM CHECKROOM ATTENDANT): Patient has continued on amitriptyline 75 mg [...] basis. Assessment & Plan (08/11/2020 10:35 AM CHECKROOM ATTENDANT): Patient is a former patient of [facility] treated for chronic mixed-type headaches. Prior medical records from [facility] have been reviewed today with patient to facilitate transfer in care. She was last seen a [facility] in 2018 and has been prescribed amitriptyline 75 mg HS since. She is in need of refill of medication at this time. She cites good tolerability with medication and good symptomatic relief of headache. She averages no more than 2 headache days per month and those are typically alleviated with [id number]-[id number] supplemental analgesic. She exhibits a normal neurological examination today. I have renewed her amitriptyline 75 mg HS as previously prescribed, and I plan to see her back in 1 year. Pain in ear 03/10/2017 Subjective tinnitus 03/10/2017 Immunizations Immunization Administration Dates Next Due Influenza, Quadrivalent, Spl it, Preservative Free, Intramuscular 06/30/2021,06/18/2020,09/24/2019,06/27 ZOSTER Recombinant 05/20/2021 Social History Tobacco Use Types Packs/Day Years [...] on file Legal Sex Female 3:20 AM CHECKROOM ATTENDANT Gender Identity Not on file Sexual Orientation Not on file Last Filed Vital Signs Vital Sign Reading [...] 02/28/2024 10:51 AM CDT Plan of Treatment Not on file Insurance [facility] CHOICE PLUS [facility] CHOICE PLUS Care Teams Straight Knife Machine Cutter Relationship Specialty Start Date End Date Gladis Gupta MD [facility] [place] [address] PCP - General Family Medicine 08/03/21
== END 2025-01-07 12:00 | disposition home or self-care (01) ==
LOC: CHSIMG 12:04
PROVIDERS: PCP Emergency Medicine; Visit Provider Obstetrics & Gynecology
DX: Z12.31 Encounter for screening mammogram for malignant neoplasm of breast (principal)
CPT/HCPCS: 77063; 77067